=== PATIENT | female | born 1965 | race Caucasian/White ===

== ENCOUNTER → 2023-06-27 11:50 | Outpatient (REF) | payer OTHER, SELFPAY | LOC: HWRAD 11:50 | PROVIDERS: ATTENDING PHYSICIAN Internal Medicine | DX: Z13.820 Encounter for screening for osteoporosis (principal) | CPT/HCPCS: 77080 ==

== ENCOUNTER → 2023-09-29 12:07 | Outpatient (REF) | payer OTHER, SELFPAY | LOC: WDC 12:07 | PROVIDERS: ATTENDING PHYSICIAN Obstetrics & Gynecology Gynecology; FAMILY PHYSICIAN Internal Medicine | DX: Z12.31 Encounter for screening mammogram for malignant neoplasm of breast (principal) | CPT/HCPCS: 77063; 77067 ==

== ENCOUNTER → 2024-02-20 12:07 | Outpatient (REF) | payer OTHER, SELFPAY | LOC: PAVMRI 12:07 | PROVIDERS: ATTENDING PHYSICIAN Psychiatry & Neurology Neurology; FAMILY PHYSICIAN Internal Medicine | DX: G50.0 Trigeminal neuralgia (principal) | CPT/HCPCS: 70553; A9575 ==

== ENCOUNTER → 2024-03-01 06:17 | Day surgery (SDC) | payer OTHER, SELFPAY | LOC: GI 06:17 | PROVIDERS: ATTENDING PHYSICIAN Internal Medicine | DX: Z12.11 Encounter for screening for malignant neoplasm of colon (principal); K63.5 Polyp of colon; K57.30 Diverticulosis of large intestine without perforation or abscess without bleeding; K64.9 Unspecified hemorrhoids; Z86.0100 Personal history of colon polyps, unspecified | CPT/HCPCS: 45380; 88305 ==

== ENCOUNTER → 2024-10-01 12:45 | Outpatient (REF) | payer OTHER, SELFPAY | LOC: WDC 12:45 | PROVIDERS: ATTENDING PHYSICIAN Obstetrics & Gynecology Gynecology; FAMILY PHYSICIAN Internal Medicine | DX: Z12.31 Encounter for screening mammogram for malignant neoplasm of breast (principal) | CPT/HCPCS: 77063; 77067 ==

== ENCOUNTER → 2024-12-19 11:42 | Outpatient (REF) | payer OTHER, SELFPAY ==
[2024-12-19 14:15] LABS: Albumin 4.7 g/dl (3.5-5.0); Blood Urea Nitrogen 21 mg/dl (7-17); Calcium 9.3 mg/dl (8.4-10.2); Carbon Dioxide 25 mmol/L (22-30); Chloride 94 mmol/L (98-107); Glucose 76 mg/dl (70-99); Potassium 4.6 mmol/L (3.5-5.1); Sodium 128 mmol/L (135-145); eGFR > 60.00
== END ==
LOC: REG 11:42
PROVIDERS: ATTENDING PHYSICIAN Internal Medicine; FAMILY PHYSICIAN Internal Medicine
DX: I10 Essential (primary) hypertension (principal); E87.1 Hypo-osmolality and hyponatremia; E61.1 Iron deficiency
CPT/HCPCS: 36415; 80069

== ENCOUNTER → 2025-01-02 09:29 | Outpatient (REF) | payer OTHER, SELFPAY ==
[2025-01-02 11:02] LABS: Albumin 4.5 g/dl (3.5-5.0); Blood Urea Nitrogen 22 mg/dl (7-17); Calcium 9.5 mg/dl (8.4-10.2); Carbon Dioxide 30 mmol/L (22-30); Chloride 101 mmol/L (98-107); Glucose 83 mg/dl (70-99); Potassium 4.0 mmol/L (3.5-5.1); Sodium 137 mmol/L (135-145); eGFR > 60.00
== END ==
LOC: REG 09:29
PROVIDERS: ATTENDING PHYSICIAN Internal Medicine; FAMILY PHYSICIAN Internal Medicine
DX: I10 Essential (primary) hypertension (principal)
CPT/HCPCS: 36415; 80069

== ENCOUNTER 2025-01-08 14:31 | Emergency (ER) | payer OTHER, SELFPAY ==
[2025-01-08 14:41] VITALS: BP 141/90
[2025-01-08 14:44] VITALS: BMI 28.7
--- NOTE | 2025-01-08 14:55 | ED.GENMED ---
History of Present Illness
General
Chief Complaint: Fainting/Passed Out
Source: patient
Exam Limitations: none
Time Seen by Provider: 01/08/25 14:39
History of Present Illness
History of Present Illness:
59-year-old [id number] female presents via EMS with left wrist pain and head and neck discomfort after to fall she sustained at the grocery store. She tripped over the curb going into the store falling forward injuring her left wrist. She
got up walked herself into the store and leaned on the counter and started to feel lightheaded and fell backwards. She hit her head on the way down per bystanders. She notes a laceration to the scalp and neck pain. She is not anticoagulated. No
chest pain or shortness of breath. She does have a history of lumbar fusion and she is concerned about the integrity of the hardware.
Phy Exam
Physical Exam
Physical Exam:
General: Well-appearing female no acute distress
HEENT normocephalic 1.5 cm laceration posterior scalp oriented and the vertical direction mild bleeding pupils equal round reactive to light TMs normal
Heart: Regular rate and rhythm
Lungs: Clear no wheeze
Musculoskeletal exam: Mild diffuse tenderness about the cervical spine the left wrist is swollen tender and slightly deformed over the radius and ulna distally the elbow and upper arm of the left arm are nontender
The lumbar spine is mildly diffusely tender
Course
Orders/Labs/Results
Orders:
Orders
01/08/25 14:39
EKG [Electrocardiogram (*1)] Urgent
Reason for Study: Syncope
EKG- Treatment ONCE
01/08/25 14:43
Wrist, Left 3 Views CR [CR Wrist - Left Min 3 Views] Urgent
Comment:
Reason For Exam: FOOSH
01/08/25 14:46
CT Cervical Spine W/o Iv Contr Urgent
Reason For Exam: fall hitting head and neck
CT Head W/o Iv Contrast Urgent
Comment:
Reason For Exam: fall head strike
01/08/25 14:47
Lumbar Spine Complete, 4 View [CR Lumbar Spine Comp Min 4 Vw*] Urgent
Comment:
Reason For Exam: fall onto back
01/08/25 15:12
Acetaminophen [Tylenol] 650 mg PO NOW STA
Vital Signs
Initial and Last Documented VS:
Initial Vital Signs
Temp Pulse Resp BP Pulse Ox
97.7 F 66 18 141/90 97
01/08/25 14:41 01/08/25 14:41 01/08/25 14:41 01/08/25 14:41 01/08/25 14:41
Last Documented Vital Signs
Temp Pulse Resp BP Pulse Ox
97.7 F 66 18 141/90 97
01/08/25 14:41 01/08/25 14:41 01/08/25 14:41 01/08/25 14:41 01/08/25 14:57
MDM/Problems Addressed
Differential Diagnosis Includes:
Mechanical fall causing left wrist discomfort the patient had what sounds like a syncopal episode after the initial fall falling backwards. I suspect this is likely related to vasovagal. We will obtain EKG placed on athletic monitor CT of head and
cervical spine ordered x-rays lumbar spine and left wrist ordered
*Pulse Oximetry
SaO2: 97
Oxygen Mode of Delivery: Room air
Patient hypoxic: no
*Critical Care Note
Total Time (30-74mins, 75-104mins- exclusive of procedures): Not Applicable
Update Note
Update Note:
X-ray left wrist negative for acute bony fracture or dislocation. Suspect underlying sprain. Velcro wrist splint applied. CT of head and cervical spine negative for acute traumatic injury. Suspect cervical strain. Recommend Motrin Tylenol and
warm compresses. X-ray lumbar spine without fracture. Patient reassured recommended orthopedic follow-up if symptoms persist in the hand. Stable for discharge
ED Attending Note
-
Portions of this chart may have been created with voice recognition software.� Occasional wrong word or��sound alike� substitutions may have occurred due to the inherent limitations of voice recognition software.
Discharge Plan
Departure
Patient Disposition: Home (Routine Discharge)
Date of Disposition: 01/08/25
Time of Disposition: 18:18
Patient with high blood pressure during this ER visit?: No
Discharge Problem:
Left wrist sprain
Instructions: Syncope (Fainting) (DC)
Referrals:
Talya Delarosa MD [Family Provider, Internal Medicine]
Activity Restrictions/Additional Instructions:
Use ibuprofen or Tylenol for pain. Use Velcro wrist splint for support for the wrist. Apply warm compresses to the neck. Return if needed, otherwise follow up with your doctor.
Interventions
Interventions:
*General Assessment Last Done: 01/08/25 14:36
*ED- Fall Risk Assessment Last Done: 01/08/25 15:09
ED- Cardiac Assessment Last Done: 01/08/25 14:45
ED- Neurological Assessment Last Done: 01/08/25 14:44
Discharge Date and Time
Print Language: SPANISH
[2025-01-08] MEDS: TYLENOL 650 MG PO (15:18)
[2025-01-08 16:38] VITALS: BP 119/87
[2025-01-08 17:00] VITALS: BP 129/81
[2025-01-08 18:00] VITALS: BP 131/86
--- NOTE | 2025-01-08 19:12 | EDRN ---
Reviewed discharge instructions with patient. Verbalized understanding. Ambulated with steady gait to the lobby.
[2025-01-08 19:13] VITALS: BP 132/82
== END 2025-01-08 19:13 | disposition home or self-care (01) ==
LOC: EMR 14:31
PROVIDERS: EMERGENCY PHYSICIAN Emergency Medicine; FAMILY PHYSICIAN Internal Medicine
DX: S63.502A Unspecified sprain of left wrist, initial encounter (principal); S01.01XA Laceration without foreign body of scalp, initial encounter; W01.0XXA Fall on same level from slipping, tripping and stumbling without subsequent striking against object, initial encounter; Y93.01 Activity, walking, marching and hiking; Y92.512 Supermarket, store or market as the place of occurrence of the external cause
CPT/HCPCS: 99284; 70450; 72110; 72125; 73110; 93005

== ENCOUNTER → 2025-02-04 10:39 | Outpatient (REF) | payer OTHER, SELFPAY ==
[2025-02-04 12:19] LABS: Albumin 4.1 g/dl (3.5-5.0); Blood Urea Nitrogen 25 mg/dl (7-17); Calcium 9.0 mg/dl (8.4-10.2); Carbon Dioxide 31 mmol/L (22-30); Chloride 102 mmol/L (98-107); Glucose 83 mg/dl (70-99); Potassium 4.3 mmol/L (3.5-5.1); Sodium 136 mmol/L (135-145); eGFR > 60.00
== END ==
LOC: REG 10:39
PROVIDERS: ATTENDING PHYSICIAN Internal Medicine; FAMILY PHYSICIAN Internal Medicine
DX: I10 Essential (primary) hypertension (principal); E87.1 Hypo-osmolality and hyponatremia
CPT/HCPCS: 36415; 80069